=== PATIENT | male | born 1995 | race Caucasian/White ===

== ENCOUNTER 2017-07-06 12:46 | Emergency (ER) | payer OTHER ==
[2017-07-06 13:21] VITALS: BP 112/69; PULSE 72; RESP 20; TEMP 97.7; O2SAT 99
--- NOTE | 2017-07-06 14:38 | RAD ---
PROCEDURE: Right Wrist Radiographs. HISTORY: RIGHT WRIST PAIN INJURED 3 WEEKS AGO COMPARISON: None. FINDINGS: BONES: No acute fracture. JOINTS: Unremarkable. SOFT TISSUES: Normal. OTHER FINDINGS: None. IMPRESSION: No demonstrated fracture or dislocation.
--- NOTE | 2017-07-06 14:41 | RAD ---
PROCEDURE: Right Hand Radiographs. HISTORY: RIGHT HAND PAIN, INJURED 3 WEEKS AGO COMPARISON: None. FINDINGS: BONES: No acute fracture. JOINTS: Unremarkable. SOFT TISSUES: Normal. OTHER FINDINGS: None. IMPRESSION: No demonstrated fracture or dislocation.
--- NOTE | 2017-07-06 15:17 | C.PDOC ---
History Of Present Illness 22 y/o male presents to the ER complaining of right hand and wrist pain. Patient states that he had an injury 3 weeks and he was told he had a fracture of the right hand and his hand was placed in splint. Patient reports that he was seen by an orthopedist in [place] today who removed the splint and told him that he did not have enough material to place a new splint. The orthopedist also advised him to have an MRI. Patient denies having new injuries. Time Seen by Provider: 07/06/17 13:15 Chief Complaint (Nursing): Upper Extremity Problem/Injury History Per: Patient History/Exam Limitations: no limitations Onset/Duration Of Symptoms: Days Current Symptoms Are (Timing): Still Present Severity: Moderate Past Medical History Reviewed: Historical Data, Nursing Documentation, Vital Signs Vital Signs: Last Vital Signs Temp 97.7 F 07/06/17 13:18 Pulse 72 07/06/17 13:18 Resp 20 07/06/17 13:18 BP 112/69 07/06/17 13:18 Pulse Ox 99 07/06/17 18:51 - Medical History PMH: No Chronic Diseases Surgical History: No Surg Hx Family History: States: No Known Family Hx - Social History Hx Tobacco Use: Yes Hx Alcohol Use: Yes Hx Substance Use: Yes - Immunization History Hx Tetanus Toxoid Vaccination: No Hx Influenza Vaccination: No Hx Pneumococcal Vaccination: No Review Of Systems Except As Marked, All Systems Reviewed And Found Negative. Musculoskeletal: Positive for: Hand Pain (right hand pain) Physical Exam - Physical Exam Appears: Non-toxic, No Acute Distress Skin: Normal Color, Warm, Dry Head: Atraumatic, Normacephalic Eye(s): bilateral: Normal Inspection Nose: Normal Oral Mucosa: Moist Neck: Supple Chest: Symmetrical Cardiovascular: Rhythm Regular Respiratory: Normal Breath Sounds, No Rales, No Rhonchi, No Wheezing Extremity: Normal ROM ( right wrist,right hand digits), Tenderness (mild tenderness to palpatiion to right 5th metacarpal), Capillary Refill (< 2 seconds ), No Swelling (right hand) Pulses: Right Radial: Normal Neurological/Psych: Oriented x3, Normal Speech ED Course And Treatment O2 Sat by Pulse Oximetry: 99 (RA) Pulse Ox Interpretation: Normal - Other Rad X-Ray- Right Wrist X-Ray: Viewed By Me, Read By Radiologist Interpretation: PROCEDURE: Right Wrist Radiographs. . HISTORY: RIGHT WRIST PAIN INJURED 3 WEEKS AGO. COMPARISON: None. FINDINGS: BONES: No acute fracture. JOINTS: Unremarkable. SOFT TISSUES: Normal. OTHER FINDINGS: None. IMPRESSION: No demonstrated fracture or dislocation. X-Ray- Right Hands X-Ray: Viewed By Me, Read By Radiologist Interpretation: PROCEDURE: Right Hand Radiographs. HISTORY: RIGHT HAND PAIN, INJURED 3 WEEKS AGO. COMPARISON: None. FINDINGS: BONES: No acute fracture. JOINTS: Unremarkable. SOFT TISSUES: Normal. OTHER FINDINGS: None. IMPRESSION: No demonstrated fracture or dislocation. Progress Note: X-Ray- Right Hand shows no fracture. Patient has been treated with Tylenol PO. Removable wrist splint has been placed by mri technician. Patient has been discharged and instructed to follow up with hand surgeon within 1 week and have an MRI as an outpatient. Disposition Counseled Patient/Family Regarding: Diagnosis, Need For Followup, Rx Given - Disposition Referrals: Osmany Mulligan MD [Staff Provider] - [facility] [Outside] Disposition: HOME/ ROUTINE Disposition Time: 15:15 Condition: STABLE Additional Instructions: FOLLOW UP WITH HAND SPECIALIST WITHIN 1 WEEK USE MEDICATION FOR PAIN NEEDED RETURN TO ER IF SYMPTOMS WORSEN Prescriptions: Naproxen 375 mg PO BID PRN #20 tablet PRN Reason: pain Instructions: Hand Pain (DC) Forms: [facility] [employer] (Wolof) Print Language: ROMANSH - POA Present On Arrival: None - Clinical Impression Clinical Impression: Sprain of right hand - Scribe Statement The provider has reviewed the documentation as recorded by the Abhijeet Ventura Provider Attestation: All medical record entries made by the Abhijeet were at my direction and personally dictated by me. I have reviewed the chart and agree that the record accurately reflects my personal performance of the history, physical exam, medical decision making, and the department course for this patient. I have also personally directed, reviewed, and agree with the discharge instructions and disposition.
== END 2017-07-06 15:47 | disposition home or self-care (01) ==
LOC: C.ER 12:46
DX: S63.501D Unspecified sprain of right wrist, subsequent encounter (principal); X58.XXXD Exposure to other specified factors, subsequent encounter

== ENCOUNTER 2018-01-12 21:05 | Emergency (ER) | payer OTHER ==
[2018-01-12 21:19] VITALS: O2SAT 99
[2018-01-12] MEDS ORDERED: Tdap Vaccine 0.5 ml Vial (10-64 yrs) IM ONE ×2 (21:22→21:44)
--- NOTE | 2018-01-12 21:22 | C.PDOC ---
History Of Present Illness 22 year old male with a Hx of substance abuse presents to the ER after he was found on the street. Patient does not remember what happened. Denies fever, chills, nausea, or vomiting. Chief Complaint (Nursing): Abnormal Skin Integrity History Per: Patient, Family History/Exam Limitations: no limitations Onset/Duration Of Symptoms: Hrs Current Symptoms Are (Timing): Still Present Location Of Injury: Left: Face (Eyebrow) Recent travel outside of the [place]: No Past Medical History Reviewed: Historical Data, Nursing Documentation, Vital Signs Vital Signs: Last Vital Signs Temp 97.6 F 01/12/18 21:14 Pulse 97 H 01/12/18 21:14 Resp 14 01/12/18 21:14 BP 139/87 01/12/18 21:14 Pulse Ox 99 01/12/18 21:14 Family History: States: Unknown Family Hx - Social History Hx Tobacco Use: Yes Hx Alcohol Use: Yes Hx Substance Use: Yes - Immunization History Hx Tetanus Toxoid Vaccination: No Hx Influenza Vaccination: No Hx Pneumococcal Vaccination: No Review Of Systems Constitutional: Negative for: Fever, Chills Cardiovascular: Negative for: Chest Pain, Palpitations Respiratory: Negative for: Cough, Shortness of Breath Gastrointestinal: Negative for: Nausea, Vomiting Musculoskeletal: Negative for: Neck Pain Skin: Positive for: Other (Abrasion and laceration) Neurological: Negative for: Weakness, Numbness Physical Exam - Physical Exam Appears: Non-toxic Skin: Normal Color, Warm, Dry Head: Normacephalic, Other (Abrasion and laceration to left eyebrow) Eye(s): bilateral: Normal Inspection, PERRL, EOMI Oral Mucosa: Moist Neck: Normal, No Midline Cervical Tenderness, No Paracervical Tenderness, Supple Chest: Symmetrical, No Tenderness Cardiovascular: Rhythm Regular Respiratory: Normal Breath Sounds, No Rales, No Rhonchi, No Wheezing Gastrointestinal/Abdominal: Soft, No Tenderness Back: No Vertebral Tenderness, No Paraspinal Tenderness Extremity: Normal ROM (x4) Neurological/Psych: Oriented x3, Normal Speech ED Course And Treatment - Laboratory Results Result Diagrams: 01/12/18 21:25 01/12/18 21:25 O2 Sat by Pulse Oximetry: 99 (Room air) Pulse Ox Interpretation: Normal Progress Note: CT head, CT orbits/facials, blood work, and urinalysis ordered. Tetanus vaccination administered. Laceration - Laceration Repair Left eyebrow Wound Length (In cm): 2 Description Of Wound: Linear Wound Cleansed With: Sterile Saline Wound Examination: Irrigated With Saline, No FB With Wound Exploration Wound Closure: Steri Strips (4), Skin Glue (Dermabond) Disposition Counseled Patient/Family Regarding: Diagnosis - Disposition Referrals: [facility] [Outside] Disposition: HOME/ ROUTINE Disposition Time: 23:39 Condition: STABLE Instructions: Laceration Repair, Laceration Repair With Glue (DC), Drug Abuse and Drug Addiction (DC) Forms: [employer] (Equatorial Guinean) - POA Present On Arrival: None - Clinical Impression Clinical Impression: Laceration, Drug abuse, Head injury - Scribe Statement The provider has reviewed the documentation as recorded by the Scribkatarina Reed All medical record entries made by the Scribe were at my direction and personally dictated by me. I have reviewed the chart and agree that the record accurately reflects my personal performance of the history, physical exam, [facility] decision making, and the department course for this patient. I have also personally directed, reviewed, and agree with the discharge instructions and disposition.
[2018-01-12 21:31] LABS: BASO % 0.5 % (0.0-2.0); EOS % 0.3 % (0.0-4.0); HEMOGLOBIN 14.6 g/dL (12.0-18.0); LYMPH # 2.1 K/uL (1.0-4.3); LYMPH % 29.8 % (20.0-40.0); MEAN CELL VOLUME 93.8 fL (80.0-94.0); MEAN CORPUSCULAR HEMOGLOBIN 31.5 pg (27.0-31.0); MEAN CORPUSCULAR HGB CONC 33.5 g/dL (33.0-37.0); MEAN PLATELET VOLUME 8.9 fL (7.2-11.7); MONO # 0.6 K/uL (0.0-0.8); MONO % 8.5 % (0.0-10.0); NEUT # 4.3 K/uL (1.8-7.0); NEUT % 60.9 % (50.0-75.0); RBC 4.64 Mil/uL (4.40-5.90); RED CELL DISTRIBUTION WIDTH 12.4 % (11.5-14.5); WHITE BLOOD COUNT 7.1 K/uL (4.8-10.8)
[2018-01-12 21:35] LABS: URINE BILIRUBIN NEGATIVE (NEGATIVE); URINE BLOOD 1+ (NEGATIVE); URINE CLARITY Clear (Clear); URINE COLOR Yellow (YELLOW); URINE GLUCOSE (UA) NORMAL (Normal); URINE LEUKOCYTE ESTERASE NEG Leu/uL (Negative); URINE PROTEIN NEGATIVE (NEGATIVE); URINE UROBILINOGEN NORMAL mg/dL (0.2-1.0)
[2018-01-12 21:42] LABS: ALB/GLOB RATIO 1.4 (1.0-2.1); ALBUMIN 4.8 g/dL (3.5-5.0); ALT/SGPT 76 U/L (21-72); AST/SGOT 51 U/L (17-59); BLOOD UREA NITROGEN 12 mg/dL (9-20); CALCIUM 9.3 mg/dl (8.6-10.4); GFR NON-AFRICAN AMERICAN > 60
[2018-01-12 21:46] LABS: BARBITURATES, UR NEGATIVE (NEGATIVE); BENZODIAZEPINES, UR NEGATIVE (NEGATIVE); OPIATES, UR NEGATIVE (NEGATIVE)
[2018-01-12 21:47] LABS: PHENCYCLIDINE, UR POSITIVE (NEGATIVE)
[2018-01-12] MEDS ORDERED: Bacitracin 500 Units/gm Oint Foilpak UD ONE (23:12)
[2018-01-12 23:19] VITALS: BP 128/86; PULSE 96; RESP 16; TEMP 98.4
[2018-01-12] MEDS ORDERED: Bacitracin 500 Units/gm Oint Foilpak UD TOP ONE (23:20)
--- NOTE | 2018-01-13 07:38 | CT ---
Date of service: 01/12/2018 PROCEDURE: CT HEAD WITHOUT CONTRAST. HISTORY: injury COMPARISON: None available. TECHNIQUE: Axial computed tomography images were obtained through the head/brain without intravenous contrast. Radiation dose: Total exam DLP = 987.61 mGy-cm. This CT exam was performed using one or more of the following dose reduction techniques: Automated exposure control, adjustment of the mA and/or kV according to patient size, and/or use of iterative reconstruction technique. FINDINGS: HEMORRHAGE: No intracranial hemorrhage. BRAIN: No mass effect or edema. No atrophy or chronic microvascular ischemic changes. VENTRICLES: Unremarkable. No hydrocephalus. CALVARIUM: Unremarkable. PARANASAL SINUSES: Unremarkable as visualized. No significant inflammatory changes. MASTOID AIR CELLS: Unremarkable as visualized. No inflammatory changes. OTHER FINDINGS: Patient rotated, slightly limiting evaluation. IMPRESSION: No acute intracranial abnormality. If symptoms persists, consider correlation with MRI. These findings were preliminarily reported at 10:49 p.m. on 01/12/[address] Prudencio Sheikh from [facility].
--- NOTE | 2018-01-13 09:01 | CT ---
CT maxillofacial HISTORY: Injury. COMPARISON: None available. TECHNIQUE: Multiple contiguous axial images were performed through the maxillofacial region without the use of intravenous contrast. Subsequently, sagittal and coronal reformatted images were obtained. This CT exam was performed using one or more of the following dose reduction techniques: Automated exposure control, adjustment of the mA and/or kV according to patient size, and/or use of iterative reconstruction technique. Findings: 5 millimeter mucosal retention cyst and or polyp off the medial wall of the right maxillary sinus. Partially calcified septations in the bilateral maxillary sinuses. Sphenoid sinus is preserved. Mild to moderate mucosal thickening of the ethmoid air cells; left greater than right Mild mucosal thickening of the left aspect of the frontal sinus. Leftward nasal septal deviation. Mucosal thickening and hypertrophy of the right middle and bilateral inferior nasal turbinates. Orbital globes appear preserved. Impression: No evidence of acute displaced fracture. 5 millimeter mucosal retention cyst and or polyp off the medial wall of the right maxillary sinus. Partially calcified septations in the bilateral maxillary sinuses. Mild to moderate mucosal thickening of the ethmoid air cells; left greater than right. Mild mucosal thickening of the left aspect of the frontal sinus. Leftward nasal septal deviation. Mucosal thickening and hypertrophy of the right middle and bilateral inferior nasal turbinates. A preliminary report was generated at 11:34 p.m. on 01/12/[address] Darius Almanzar from [facility].
== END 2018-01-13 00:53 | disposition home or self-care (01) ==
LOC: C.ER 21:05
DX: S01.112A Laceration without foreign body of left eyelid and periocular area, initial encounter (principal); X58.XXXA Exposure to other specified factors, initial encounter; F19.10 Other psychoactive substance abuse, uncomplicated

== ENCOUNTER 2018-01-13 00:54 | Emergency (ER) | payer OTHER ==
[2018-01-13 01:09] VITALS: RESP 16; TEMP 98
--- NOTE | 2018-01-13 01:13 | C.PDOC ---
History Of Present Illness 22 year old male presents to the ER for wound check of previously repaired laceration. Patient was just discharged from the ER for a left eyebrow laceration which was closed successfully with dermabond and steristrips. Family member states they found patient with open wound, when questioned about it patient told them he thought he was removing a bandaid. Denies new trauma, headache, or dizziness. Time Seen by Provider: 01/13/18 00:58 Chief Complaint (Nursing): Abnormal Skin Integrity History Per: Patient History/Exam Limitations: no limitations Onset/Duration Of Symptoms: Hrs Current Symptoms Are (Timing): Still Present Location Of Injury: Left: Face (Eyebrow) Quality Of Symptoms: Other (Laceration) Recent travel outside of the [place]: No Past Medical History Reviewed: Historical Data, Nursing Documentation, Vital Signs Vital Signs: Last Vital Signs Temp 98.0 F 01/13/18 01:00 Pulse 78 01/13/18 01:00 Resp 16 01/13/18 01:00 BP 118/76 01/13/18 01:00 Pulse Ox 97 01/13/18 01:00 Family History: States: Unknown Family Hx - Social History Hx Tobacco Use: Yes Hx Alcohol Use: Yes Hx Substance Use: Yes - Immunization History Hx Tetanus Toxoid Vaccination: No Hx Influenza Vaccination: No Hx Pneumococcal Vaccination: No Review Of Systems Skin: Positive for: Other (Laceration) Neurological: Negative for: Headache, Dizziness Physical Exam - Physical Exam Appears: Non-toxic Skin: Warm, Dry Head: Normacephalic, Laceration (2cm above left eyebrow with minimal bleeding, no hematoma) Eye(s): bilateral: Normal Inspection, EOMI Neurological/Psych: Oriented x3, Normal Speech Gait: Steady ED Course And Treatment O2 Sat by Pulse Oximetry: 97 (Room air) Pulse Ox Interpretation: Normal Progress Note: Advised patient to repair laceration with sutures, however, patient strongly refused, relatives at bedside all agreed in favor for using dermabond and steristrips again to repair wound, patient states he is more coherent to follow instructions. Patient tolerated laceration repair without any difficulty, light dressing applied, will discharge home with instructions to follow up with PMD. Laceration - Laceration Repair Left eyebrow Wound Length (In cm): 2 Description Of Wound: Linear Wound Cleansed With: Sterile Saline Wound Examination: Irrigated With Saline, No FB With Wound Exploration Wound Closure: Steri Strips (4), Skin Glue (Dermabond) Wound Complexity: Simple (well tolerated by pt) Disposition Counseled Patient/Family Regarding: Diagnosis, Need For Followup - Disposition Referrals: PMD, PMD [Other] Disposition: HOME/ ROUTINE Disposition Time: :11 Condition: STABLE Additional Instructions: Please follow up with PMD for wound check in 2 days Keep wound dry for 48 h Return to ER if worse Instructions: Laceration Repair With Glue (DC) Forms: [employer] (Kyrgyz) - Clinical Impression Clinical Impression: Laceration of eyebrow, left - PA / CLINICAL PSYCHOLOGIST [employer] / Resident Statement MD/DO has reviewed & agrees with the documentation as recorded. - Scribe Statement The provider has reviewed the documentation as recorded by the Scribkatarina Reed All medical record entries made by the Frankyibkatarina were at my direction and personally dictated by me. I have reviewed the chart and agree that the record accurately reflects my personal performance of the history, physical exam, medical decision making, and the department course for this patient. I have also personally directed, reviewed, and agree with the discharge instructions and disposition.
[2018-01-13] MEDS ORDERED: Bacitracin 500 Units/gm Oint Foilpak UD ONE (01:15)
[2018-01-13 01:24] VITALS: BP 120/78; PULSE 88
[2018-01-13 04:01] VITALS: O2SAT 97
== END 2018-01-13 01:22 | disposition home or self-care (01) ==
LOC: C.ER 00:54
DX: S01.112D Laceration without foreign body of left eyelid and periocular area, subsequent encounter (principal); X58.XXXD Exposure to other specified factors, subsequent encounter

== ENCOUNTER 2018-02-01 14:50 | Emergency (ER) | payer OTHER ==
[2018-02-01 15:37] VITALS: TEMP 98.2
[2018-02-01 16:18] LABS: BASO % 0.6 % (0.0-2.0); EOS % 0.1 % (0.0-4.0); HEMOGLOBIN 14.8 g/dL (12.0-18.0); LYMPH # 1.1 K/uL (1.0-4.3); LYMPH % 12.8 % (20.0-40.0); MEAN CELL VOLUME 96.4 fL (80.0-94.0); MEAN CORPUSCULAR HEMOGLOBIN 32.3 pg (27.0-31.0); MEAN CORPUSCULAR HGB CONC 33.5 g/dL (33.0-37.0); MEAN PLATELET VOLUME 9.7 fL (7.2-11.7); MONO # 0.3 K/uL (0.0-0.8); MONO % 3.8 % (0.0-10.0); NEUT # 7.3 K/uL (1.8-7.0); NEUT % 82.7 % (50.0-75.0); NRBC % 0.1 % (0.0-2.0); RBC 4.59 Mil/uL (4.40-5.90); WHITE BLOOD COUNT 8.9 K/uL (4.8-10.8)
[2018-02-01 16:43] LABS: ALB/GLOB RATIO 1.4 (1.0-2.1); ALBUMIN 5.1 g/dL (3.5-5.0); ALT/SGPT 35 U/L (21-72); AST/SGOT 34 U/L (17-59); BLOOD UREA NITROGEN 8 mg/dL (9-20); CALCIUM 9.6 mg/dl (8.6-10.4); GFR NON-AFRICAN AMERICAN > 60
[2018-02-01 17:29] LABS: BARBITURATES, UR NEGATIVE (NEGATIVE); BENZODIAZEPINES, UR NEGATIVE (NEGATIVE); OPIATES, UR NEGATIVE (NEGATIVE)
[2018-02-01 17:30] LABS: SQUAMOUS EPITHIAL < 1 /hpf (0-5); URINE BILIRUBIN NEGATIVE (NEGATIVE); URINE BLOOD NEGATIVE (NEGATIVE); URINE CLARITY Clear (Clear); URINE COLOR Yellow (YELLOW); URINE GLUCOSE (UA) NORMAL (Normal); URINE LEUKOCYTE ESTERASE NEG Leu/uL (Negative); URINE PROTEIN NEGATIVE (NEGATIVE); URINE UROBILINOGEN NORMAL mg/dL (0.2-1.0)
[2018-02-01 18:00] LABS: PHENCYCLIDINE, UR POSITIVE (NEGATIVE)
[2018-02-01 18:22] VITALS: BP 119/74; PULSE 94; RESP 18; O2SAT 100
--- NOTE | 2018-02-01 18:33 | C.PDOC ---
History Of Present Illness 23 y/o male brought in by EMS after he was found by parking authority staring. Upon arrival to ED, patient has no complaints. Denies any alcohol or drug abuse. Patient states that he was taking a physics exam for college prior to arrival. Prior ER visits documentation shows hx of PCP use. Time Seen by Provider: 02/01/18 15:59 Chief Complaint (Nursing): Psychiatric Evaluation History Per: Patient History/Exam Limitations: no limitations Onset/Duration Of Symptoms: Hrs Current Symptoms Are (Timing): Still Present Suicide/Self Injury Attempted (Context): None Involuntary Hold By: None Past Medical History Reviewed: Historical Data, Nursing Documentation, Vital Signs Vital Signs: Last Vital Signs Temp 98.2 F 02/01/18 18:22 Pulse 94 H 02/01/18 18:22 Resp 18 02/01/18 18:22 BP 119/74 02/01/18 18:22 Pulse Ox 100 02/01/18 18:22 - Medical History PMH: No Chronic Diseases Family History: States: Unknown Family Hx - Social History Hx Tobacco Use: Yes Hx Alcohol Use: Yes Hx Substance Use: Yes - Immunization History Hx Tetanus Toxoid Vaccination: No Hx Influenza Vaccination: No Hx Pneumococcal Vaccination: No Review Of Systems Except As Marked, All Systems Reviewed And Found Negative. Constitutional: Negative for: Fever Eyes: Negative for: Vision Change Cardiovascular: Negative for: Chest Pain Respiratory: Negative for: Shortness of Breath Gastrointestinal: Negative for: Abdominal Pain Neurological: Negative for: Weakness, Numbness Psych: Negative for: Psychosis, Suicidal ideation, Other (substance abuse) Physical Exam - Physical Exam Appears: Non-toxic, No Acute Distress Skin: Normal Color, Warm, Dry Head: Atraumatic, Normacephalic Eye(s): bilateral: Normal Inspection, PERRL, EOMI Oral Mucosa: Moist Neck: Normal ROM Chest: Symmetrical Cardiovascular: Rhythm Regular, No Murmur Respiratory: Normal Breath Sounds, No Accessory Muscle Use Gastrointestinal/Abdominal: Soft, No Tenderness, No Distention Extremity: Bilateral: Atraumatic, Normal Color And Temperature, Normal ROM Neurological/Psych: Oriented x3, Normal Speech ED Course And Treatment - Laboratory Results Result Diagrams: 02/01/18 16:14 02/01/18 16:14 O2 Sat by Pulse Oximetry: 100 (RA) Pulse Ox Interpretation: Normal Medical Decision Making Medical Decision Making: Impression: ?substance abuse Plan: --Blood work --Urinalysis --Placed on 1:1 obs Labs show +PCP use. On reevaluation patient continues to feel fine, and feels comfortable being discharged home. Offers no complaints. Patient is stable for d/c. Disposition - Disposition Referrals: Ashley Jin, [Non-Staff] - Disposition: HOME/ ROUTINE Disposition Time: 18:00 Condition: IMPROVED Additional Instructions: KELLEN SANTOYO, thank you for letting us take care of you today. The emergency medical care you received today was directed at your acute symptoms. If you were prescribed any medication, please fill it and take as directed. It may take several days for your symptoms to resolve. Return to the Emergency Department if your symptoms worsen, do not improve, or if you have any other problems. Please contact your doctor or call one of the physicians/clinics you have been referred to that are listed on the Patient Visit Information form that is included in your discharge packet. Bring any paperwork you were given at discharge with you along with any medications you are taking to your follow up visit. Our treatment cannot replace ongoing medical care by a primary care provider outside of the emergency department. Thank you for allowing the [facility] team to be part of your care today. Follow up with your primary care doctor this week for re-evaluation and further management. Instructions: Drug Abuse and Drug Addiction (DC) Forms: [employer] (Korean) - Clinical Impression Clinical Impression: PCP (phencyclidine) abuse - Scribe Statement The provider has reviewed the documentation as recorded by the Abhijeet Hill Provider Attestation: All medical record entries made by the Frankyibkatarina were at my direction and personally dictated by me. I have reviewed the chart and agree that the record accurately reflects my personal performance of the history, physical exam, medical decision making, and the department course for this patient. I have also personally directed, reviewed, and agree with the discharge instructions and disposition.
== END 2018-02-01 18:42 | disposition home or self-care (01) ==
LOC: C.ER 14:50
DX: F16.10 Hallucinogen abuse, uncomplicated (principal)

== ENCOUNTER 2018-02-03 14:35 | Emergency (ER) | payer OTHER ==
[2018-02-03 14:53] VITALS: PULSE 91; TEMP 98.2; O2SAT 100
--- NOTE | 2018-02-03 16:00 | C.PDOC ---
History Of Present Illness 23 y/o male brought in by EMS for bizarre behavior in public. Patient was seen in the ED 2 days ago and treated for smoking PCP. Upon arrival, patient has no physical complaints. Prior ER visits documentation shows hx of PCP use. Patient restrained by security for safety. Time Seen by Provider: 02/03/18 14:42 Chief Complaint (Nursing): Substance Abuse History Per: Patient, EMS History/Exam Limitations: no limitations Onset/Duration Of Symptoms: Hrs Current Symptoms Are (Timing): Still Present Suicide/Self Injury Attempted (Context): None Modifying Factor(s): Other (PCP) Past Medical History Reviewed: Historical Data, Nursing Documentation, Vital Signs Vital Signs: Last Vital Signs Temp 98.2 F 02/03/18 14:45 Pulse 91 H 02/03/18 14:45 Resp 18 02/03/18 14:45 BP 150/104 H 02/03/18 14:45 Pulse Ox 100 02/03/18 14:45 - Medical History PMH: No Chronic Diseases Other Surgeries: hx of surgeries Family History: States: No Known Family Hx - Social History Hx Tobacco Use: Yes Hx Alcohol Use: Yes Hx Substance Use: Yes - Immunization History Hx Tetanus Toxoid Vaccination: No Hx Influenza Vaccination: No Hx Pneumococcal Vaccination: No Review Of Systems Except As Marked, All Systems Reviewed And Found Negative. Constitutional: Positive for: Other (bizarre behavior ) Psych: Negative for: Suicidal ideation Physical Exam - Physical Exam Additional Physical Exam Comments: Appears: Non-toxic, No Acute Distress. thin and tall Mauritian male Skin: Normal Color, Warm, Dry Head: Atraumatic, Normacephalic Eye(s): bilateral: Normal Inspection, PERRL, EOMI Oral Mucosa: Moist Neck: Normal ROM Chest: Symmetrical Cardiovascular: Rhythm Regular, No Murmur Respiratory: Normal Breath Sounds, No Accessory Muscle Use Gastrointestinal/Abdominal: Soft, No Tenderness, No Distention Extremity: Bilateral: Atraumatic, Normal Color And Temperature, Normal ROM Neurological/Psych: alert, awake, disoriented, confused, cannot be redirected. (consistent with PCP abuse). ED Course And Treatment O2 Sat by Pulse Oximetry: 100 (RA) Pulse Ox Interpretation: Normal Reevaluation Time: 16:00 Reassessment Condition: Improved (clinically sober, cooperative) Medical Decision Making Medical Decision Making: Plan - 1:1 observation suspect persistent PCP abuse poor insight. Disposition Doctor Will See Patient In The: Office Counseled Patient/Family Regarding: Studies Performed, Diagnosis - Disposition Referrals: [facility] Anonymous [Outside] [facility] [facility] [Outside] [facility] [Outside] [facility] [Outside] [facility] [Outside] [facility] [Outside] Disposition: HOME/ ROUTINE Disposition Time: 16:00 Condition: GOOD Additional Instructions: STOP substance abuse this is the SECOND Emergency Department Eval in 2 days! Seek counseling for your psych and substance abuse issues. Instructions: Drug Abuse and Drug Addiction (DC), Drug Abuse Treatment Forms: [employer] (Ukrainian) - Clinical Impression Clinical Impression: Drug abuse, PCP (phencyclidine) abuse - Scribe Statement The provider has reviewed the documentation as recorded by the Scribe Betsy Sierra All medical record entries made by the Scribe were at my direction and personally dictated by me. I have reviewed the chart and agree that the record accurately reflects my personal performance of the history, physical exam, medical decision making, and the department course for this patient. I have also personally directed, reviewed, and agree with the discharge instructions and disposition.
[2018-02-03 16:08] VITALS: BP 132/85; RESP 19
== END 2018-02-03 16:21 | disposition home or self-care (01) ==
LOC: C.ER 14:35
DX: F16.10 Hallucinogen abuse, uncomplicated (principal)

== ENCOUNTER 2018-03-02 13:13 | Emergency (ER) | payer OTHER ==
--- NOTE | 2018-03-02 13:26 | C.PDOC ---
History Of Present Illness 23 y/o male brought in via EMS for bizarre behavior. Patient arrives in 4 point restraints. Records reviewed, patient has a history of PCP abuse. On arrival he is awake and alert but not answering questions appropriately. No other history obtained secondary to patients intoxication. Time Seen by Provider: 03/02/18 13:16 Chief Complaint (Nursing): Substance Abuse History Per: Patient History/Exam Limitations: intoxication Onset/Duration Of Symptoms: Unknown Current Symptoms Are (Timing): Still Present Modifying Factor(s): Other (Substance abuse) Involuntary Hold By: None Past Medical History Reviewed: Historical Data, Nursing Documentation, Vital Signs Vital Signs: Last Vital Signs Temp 99.3 F 03/02/18 13:19 Pulse 111 H 03/02/18 13:19 Resp 18 03/02/18 13:19 BP 162/95 H 03/02/18 13:19 Pulse Ox 98 03/02/18 13:19 Family History: States: Unknown Family Hx - Social History Hx Tobacco Use: Yes Hx Alcohol Use: Yes Hx Substance Use: Yes - Immunization History Hx Tetanus Toxoid Vaccination: No Hx Influenza Vaccination: No Hx Pneumococcal Vaccination: No Review Of Systems Review Of Systems: ROS cannot be obtained secondary to pt's inabilty to answer questions. Physical Exam - Physical Exam Appears: No Acute Distress, Other (Awake, Alert) Skin: Normal Color, Other (No obvious signs of trauma to the face, neck, back, abdomen, or extremities) Head: Atraumatic, Normacephalic Eye(s): bilateral: Normal Inspection (conjunctiva clear), PERRL, EOMI Oral Mucosa: Moist Neck: Normal ROM Chest: Symmetrical Cardiovascular: Rhythm Regular, Other (Tachycardic) Respiratory: Normal Breath Sounds, No Rales, No Rhonchi, No Wheezing Gastrointestinal/Abdominal: Soft, No Tenderness, No Guarding Extremity: Bilateral: Atraumatic, Normal Color And Temperature Pulses: Left Dorsalis Pedis: Normal, Right Dorsalis Pedis: Normal Neurological/Psych: Other (Speaking in full sentences but not answering questions) ED Course And Treatment O2 Sat by Pulse Oximetry: 98 (RA) Pulse Ox Interpretation: Normal Medical Decision Making Medical Decision Making: Plan: --Accucheck --Will monitor in the ED for clinical sobriety Finger stick is 78. Patient resting comfortably on reevaluation. 15:40 Patient's mom called the ED, states she will arrange bead picker of patient. 16:05 Patients sister has arrived to the ED to pick patient up. On reevaluation patient is alert, awake, answering questions, states he feels fine. Denies any drug use. No physical complaints offered. Patient reports his only complaint is "the way people treated him here" - He states no one ever evaluated him. I reassured patient that myself and nursing staff were at bedside, evaluated patient multiple times. Patient will be discharged to the custody of his sister. Disposition Counseled Patient/Family Regarding: Diagnosis, Need For Followup - Disposition Referrals: [facility] [Outside] [facility] [Outside] Disposition: HOME/ ROUTINE Disposition Time: 16:10 Condition: STABLE Instructions: Drug Abuse and Drug Addiction (DC) Forms: [facility] (Hebrew), General Discharge Instructions - POA Present On Arrival: None - Clinical Impression Clinical Impression: Substance abuse - Scribe Statement The provider has reviewed the documentation as recorded by the Abhijeet Hill Provider Attestation: All medical record entries made by the Abhijeet were at my direction and personally dictated by me. I have reviewed the chart and agree that the record accurately reflects my personal performance of the history, physical exam, medical decision making, and the department course for this patient. I have also personally directed, reviewed, and agree with the discharge instructions and disposition.
[2018-03-02 13:43] VITALS: BP 162/95; PULSE 111; TEMP 99.3; O2SAT 98
[2018-03-02 16:29] VITALS: RESP 20
== END 2018-03-02 16:28 | disposition home or self-care (01) ==
LOC: C.ER 13:13
DX: F19.10 Other psychoactive substance abuse, uncomplicated (principal)

== ENCOUNTER 2018-06-18 20:14 | Emergency (ER) | payer OTHER | END 2018-06-18 21:20 | disposition home or self-care (01) | LOC: C.ER 20:14 | DX: F16.10 Hallucinogen abuse, uncomplicated (principal) ==